=== PATIENT | male | born 1990 | race Two or more races ===

== ENCOUNTER 2020-12-23 18:40 | Emergency (ER) | payer MEDICAID ==
[~2020-12-23] VITALS: Ht 188 cm; Wt 80.0 kg
[2020-12-23] MEDS ORDERED: ACETAMINOPHEN 325MG TABLET PO ONE (21:45)
[2020-12-23 21:46] LABS: BASOPHILS % 0.7 % (0.0-2.0); EOSINOPHILS % 3.7 % (0.0-5.0); HEMATOCRIT. 39.4 % (42.0-52.0); HEMOGLOBIN. 13.3 g/dL (14.0-18.0); LYMPHOCYTES % 32.4 % (20.0-50.0); MEAN CORPUSCULAR HEMOGLOBIN 29.3 pg (28.0-32.0); MEAN CORPUSCULAR VOLUME 86.7 fL (80.0-94.0); MEAN PLATELET VOLUME 8.2 fl (7.4-10.4); MONOCYTES % 9.1 % (2.0-8.0); NEUTROPHILS % 54.1 % (40.0-76.0); PLATELET 196 x1000/uL (130-400); RED BLOOD CELL COUNT 4.54 mill/uL (4.7-6.1); RED CELL DISTRIBUTION WIDTH 13.1 % (11.6-14.6)
[2020-12-23 21:50] LABS: CHLORIDE 107 mEq/L (98-107)
[2020-12-23] MEDS ORDERED: IOHEXOL-300 100 ML BOTTLE ONE (22:22)
[2020-12-23] MEDS ORDERED: MORPHINE SULFATE 4 MG/ML CPJ (NOT FOR IM USE) IV ONE (22:45)
[2020-12-24 01:17] VITALS: BP 127/87
== END 2020-12-24 01:40 | disposition home or self-care (01) ==
LOC: ER 18:40
DX: R51.9 Headache, unspecified (principal)
CPT/HCPCS: 36415; 70450; 73610; 74177; 80048; 85025; 96374; 99285; J2270; Q9967; Z7610